=== PATIENT | male | born 1965 | race Caucasian/White ===

== ENCOUNTER 2021-07-12 00:29 | Emergency (ER) | payer BC ==
[2021-07-12] MEDS ORDERED: Acetaminophen/HYDROcodone 325-5 MG Tab PO ONE (01:07)
[2021-07-12] MEDS ORDERED: metroNIDAZOLE 250 MG Tab PO ONE (01:07)
[2021-07-12] MEDS ORDERED: Ciprofloxacin 500 MG Tab PO ONE (01:07)
--- NOTE | 2021-07-12 01:17 | EDM.PDOC ---
ED HPI GENERAL MEDICAL PROBLEM - General Chief Complaint: General Stated Complaint: HEMORHOIDS Time Seen by Provider: 07/12/21 00:48 - History of Present Illness INITIAL COMMENTS - FREE TEXT/NARRATIVE: HISTORY AND PHYSICAL: History of present illness: Is a 55-year-old gent with a history of hypertension and diverticulitis in the past who presents ER today secondary to hemorrhoids and pain. Patient reports that he started having hemorrhoids approximate 5 days ago and started having severe pain and discomfort today when he got up to walk. Patient reports has had diverticulitis in the past and feels that he is had mild diverticulitis over the last week. Patient reports that usually treats his diverticulitis with bowel rest which he has been doing. Patient reports that he is still having some mild occasional discomfort in his left lower quadrant despite his bowel rest and is requesting antibiotics for early diverticulitis as well. Patient denies any recent fevers, shakes, chills, nausea, vomiting, constipation. Patient denies any abdominal pain or discomfort at this time but reports he does have occasional episodes of mild discomfort in his left lower quadrant. Patient reports that he has some mucus when he has his diarrhea and thinks that that is consistent with his prior bouts of diverticulitis. Is any dysuria, frequency, urgency, polyuria, polydipsia, polyphagia. Patient has hematuria. Patient has any melena or bright red blood per rectum. Patient denies any constipation but reports that he has the sensation of having to move his bowels and has been sitting on the toilet a lot. Review of systems: As per history of present illness and below otherwise all systems reviewed and negative. Past medical history: As per history of present illness and as reviewed below otherwise noncontributor y. Surgical history: As per history of present illness and as reviewed below otherwise noncontributory. Social history: No reported history of drug abuse. Family history: As per history of present illness and as reviewed below otherwise noncontributory. Physical exam: This patient was seen and evaluated during the 2019 SARS-CoV-2 novel coronavirus pandemic period. Community viral transmission is ongoing at time of this encounter and the emergency department is operating under pandemic response procedures. Constitutional: Patient is oriented to person, place, and time. Appears well-d eveloped and well-nourished. No distress. HEENT: Moist mucous membranes Head: Normocephalic and atraumatic Eyes: Right eye exhibits no discharge. Left eye exhibits no discharge. No scleral icterus Neck: Normal range of motion. No tracheal deviation present. Cardiovascular: Normal rate and regular rhythm. Pulmonary: Effort normal, no respiratory distress. Abd: Soft, nondistended, no rebound/guarding, no psoas or obturator signs, no tenderness at Mcberney's point, no Butt's sign. Pt does not present with an exam that would be consistent with an acute surgical abdomen at this time. Patient has no tenderness to palpation throughout his entire abdomen. Patient has no pain specifically in the left lower quadrant. Rectal exam: Patient has small external hemorrhoids that are tender to palpation with no thrombosis they are easily reducible but tender with any pressure this applied. Patient has no active bleeding although there is a lot of excoriation around the hemorrhoids. Musculoskeletal: Normal range of motion Neurologic: Alert and oriented to person, place and time. Skin: [place], warm and dry. Psychiatric: Normal mood and affect. Behavior is normal. Judgment and thought content normal. Nursing note and vital signs have been reviewed Assessment and plan: 55-year-old gentleman who presents ER today secondary to hemorrhoids and pain in the rectum as well as concern that he might have early diverticulitis. Patient's evaluation today does not reveal any thrombosis to his hemorrhoids. Patient's hemorrhoids are easily reduced and tender to palpation with no active bleeding. Patient will get started on Anusol HC cream as well as Clayton to assist him with his pain and will be referred to surgery clinic for further evaluation of his hemorrhoids. Although patient is having absolutely no abdominal pain at this time, he is requesting antibiotics for diverticulitis. Patient reports that he is having similar symptoms to what he had in the past with his diverticulitis. He reports he has had symptoms for close to 7 to 10 days now. Patient reports normally bowel rest with clear liquids generally resolves his episodes of diverticulitis however he reports that he still been having slight intermittent episodes of left lower quadrant pain and some mucousy stools that he thinks is consistent with his bouts of diverticulitis in the past. Patient abdominal exam is completely benign and is nontender to palpation here in the ER. He has no fever. I do not think it would be inappropriate to initiate antibiotic therapy with ciprofloxacin and Flagyl per patient's request given his familiarity with his own symptoms. Reassessment at the time of disposition demonstrates that the patient is in no acute distress. The patient has remained stable throughout the entire ED visit and is without objective evidence for acute process requiring urgent intervention or hospitalization. The patient is stable for discharge, counseling is provided as documented above, discussed symptomatic treatment and specific conditions for return. I have spoken with the patient/caregiver and discussed todays findings, in addition to providing specific details for the plan of care. Questions are answered and there is agreement with the plan. Definitive disposition and diagnosis as appropriate pending reevaluation and review of above. Rectal Pain Score (Numeric/FACES): 9 - Related Data Allergies Allergy/AdvReac Type Severity Reaction Status Date / Time IV DYE Allergy Difficulty Uncoded 07/12/21 00:50 Breathing Home Meds: Home Meds Fenofibric Acid 135 mg PO DAILY 08/05/14 [History] Lisinopril 1 tab PO DAILY 08/05/14 [History] Omeprazole [Prilosec] 1 cap PO DAILY 08/05/14 [History] allopurinoL [Zyloprim] 1 tab PO DAILY 08/05/14 [History] Ciprofloxacin HCl [Cipro] 500 mg PO BID #20 tablet 07/12/21 [Rx] Hydrocodone/Acetaminophen [Hydrocodone-Acetamin 5-325 mg] 1 each PO Q6HR PRN #14 tab 07/12/21 [Rx] Hydrocortisone Acetate [Anusol-Hc] 25 mg RC TID #20 supp.rect 07/12/21 [Rx] metroNIDAZOLE [Flagyl] 500 mg PO Q8H #30 tab 07/12/21 [Rx] Past Medical History Cardiovascular History: Reports: High Cholesterol, Hypertension Gastrointestinal History: Reports: Diverticulosis - Infectious Disease History Infectious Disease History: Reports: Chicken Pox Social & Family History - Family History Family Medical History: No Pertinent Family History - Tobacco Use Tobacco Use Status *Q: Never Tobacco User - Recreational Drug Use Recreational Drug Use: No ED ROS GENERAL - Review of Systems Review Of Systems: See Below ED EXAM, GENERAL - Physical Exam Exam: See Below Course - Vital Signs Last Recorded V/S: Last Vital Signs Temp 96.5 F L 07/12/21 00:47 Pulse 88 07/12/21 00:47 Resp 18 07/12/21 00:47 BP 157/87 H 07/12/21 00:47 Pulse Ox 95 07/12/21 00:47 - Orders/Labs/Meds Meds: Medications Discontinued Medications Generic Name Dose Route Start Last Admin Trade Name Fabian PRN Reason Stop Dose Admin Hydrocodone Bitart/Acetaminophen 1 tab 07/12/21 01:07 Acetaminophen/Hydrocodone 325-5 Mg Tab PO 07/12/21 01:08 ONETIME ONE Ciprofloxacin 500 mg 07/12/21 01:07 Ciprofloxacin 500 Mg Tab PO 07/12/21 01:08 ONETIME ONE Metronidazole 500 mg 07/12/21 01:07 Metronidazole 250 Mg Tab PO 07/12/21 01:08 ONETIME ONE Departure - Departure Time of Disposition: 01:16 Disposition: Home, Self-Care 01 Condition: Good Clinical Impression: Hemorrhoids, external without complications, Diverticulitis - Discharge Information Instructions: Diverticulitis, [id number], Surgical Procedures for Hemorrhoids, Hemorrhoids, [id number], Nonsurgical Procedures for Hemorrhoids Referrals: Johny Bajwa MD [Primary Care Provider] - Additional Instructions: You were seen and evaluated in the ER today secondary to painful hemorrhoids. You will be given a prescription for Anusol HC cream as well as Clayton to help you with your pain. You also be given the phone number for the surgery clinic to call to make an appointment to see the general surgeon to assist you with your long-term work-up for your hemorrhoids. Given your symptoms and your prior history and knowledge of your diverticulitis symptoms, I will go ahead and start you on antibiotics per your request to treat you for early diverticulitis. You will also be given a prescription for Flagyl and Cipro to treat early diverticulitis. You will have Clayton to help you with pain free hemorrhoids to take in case you start developing any abdominal pain as well. [facility] - General Surgery Professional Building [address] [place] [address], [address] [place] [address] The following information is given to patients seen in the emergency department who are being discharged to home. This information is to outline your options for follow-up care. We provide all patients seen in our emergency department wi th a follow-up referral. The need for follow-up, as well as the timing and circumstances, are variable depending upon the specifics of your emergency department visit. If you don't have a primary care physician on staff, we will provide you with a referral. We always advise you to contact your personal physician following an emergency department visit to inform them of the circumstance of the visit and for follow-up with them and/or the need for any referrals to a consulting specialist. The emergency department will also refer you to a specialist when appropriate. This referral assures that you have the opportunity for follow-up care with a specialist. All of these measure are taken in an effort to provide you with optimal care, which includes your follow-up. Under all circumstances we always encourage you to contact your private physician who remains a resource for coordinating your care. When calling for follow-up care, please make the office aware that this follow-up is from your recent emergency room visit. If for any reason you are refused follow-up, please contact the [facility] Emergency Department at and asked to speak to the emergency department charge nurse. [facility] - Primary Care [address] [place] [id number] [facility] [address] [place] [id number] Sepsis Event Note (ED) - Evaluation Sepsis Screening Result: No Definite Risk - Focused Exam Vital Signs: Vital Signs Temp Pulse Resp BP Pulse Ox 07/12/21 00:47 96.5 F L 88 18 157/87 H 95
== END 2021-07-12 01:32 | disposition home or self-care (01) ==
LOC: MW.ED 00:29
DX: K64.4 Residual hemorrhoidal skin tags (principal); K57.92 Diverticulitis of intestine, part unspecified, without perforation or abscess without bleeding; I10 Essential (primary) hypertension; Z91.041 Radiographic dye allergy status; Z79.899 Other long term (current) drug therapy
CPT/HCPCS: 99282; A9270